=== PATIENT | female | born 1985 | race Caucasian/White ===

== ENCOUNTER 2019-04-11 12:09 | Emergency (ER) | payer OTHER ==
[~2019-04-11] VITALS: Ht 154.9 cm; Wt 90.7 kg
[2019-04-11] MEDS ORDERED: DICLOFENAC SODI75 MG PO (14:42)
== END 2019-04-11 14:49 | disposition home or self-care (01) ==
LOC: ER 12:09
DX: S80.02XA Contusion of left knee, initial encounter (principal); S90.32XA Contusion of left foot, initial encounter; W10.9XXA Fall (on) (from) unspecified stairs and steps, initial encounter; Y93.89 Activity, other specified; Y92.89 Other specified places as the place of occurrence of the external cause; Y99.8 Other external cause status

== ENCOUNTER 2019-08-28 23:06 | Emergency (ER) | payer OTHER ==
[~2019-08-28] VITALS: Ht 154.9 cm; Wt 90.7 kg
[~2019-08-28 23:06] MED LIST: DICLOFENAC SODI75 MG PO
[2019-08-28] MEDS ORDERED: ESKALITH300 MG (23:23)
[2019-08-28] MEDS ORDERED: FORTAMET1000 MG (23:24)
[2019-08-29] MEDS ORDERED: ZYNCOF 20-400120 ML PO ×2 (02:00→02:01)
[2019-08-29] MEDS ORDERED: ZITHROMAX500 MG PO (02:00)
== END 2019-08-29 02:12 | disposition home or self-care (01) ==
LOC: ER 23:06
DX: J06.9 Acute upper respiratory infection, unspecified (principal); B96.0 Mycoplasma pneumoniae [M. pneumoniae] as the cause of diseases classified elsewhere